=== PATIENT | male | born 1960 | race Caucasian/White ===

== ENCOUNTER → 2018-12-11 | Outpatient (CLI) | payer OTHER ==
[~2018-12-11] MED LIST: ASPIR-TRIN325 MG PO; FLEXERIL10 MG PO; GLUCOPHAGE500 M1 PO; IBUPROFEN600 MG PO; LIPITOR40 MG PO; LISINOPRIL5 MG PO; MOTRIN800 MG PO; NORFLEX100 MG PO; PROTONIX40 MG PO
[2018-12-11 09:26] LABS: BUN 14 mg/dl (7-24); CHLORIDE 105 mmol/L (98-107); CREATININE 0.89 mg/dL (0.70-1.30); POTASSIUM 4.1 mmol/L (3.5-5.1); SODIUM 139 mmol/L (136-145)
== END | disposition home or self-care (01) ==
LOC: LAB 08:30
PROVIDERS: Internal Medicine
DX: I10 Essential (primary) hypertension (principal)

== ENCOUNTER → 2018-12-16 | Day surgery (SDC) | payer OTHER ==
[~2018-12-16] VITALS: Ht 170.1 cm; Wt 72.6 kg
--- NOTE | ~2018-12-16 | O ---
[place], [place] OPERATIVE NOTE NAME: ANDREANASTASIA NAM UNIT #: [id number] ROOM: DOCTOR: BERKLEY DONALD MD BIRTHDATE: [birth year] DOS: 12/16/2018 GASTROENDOSCOPIC REPORT INDICATIONS: The patient has presented for colon screening, rectal pain, and rectal fissure. ALLERGIES: LATEX. FAMILY HISTORY: Remarkable. PAST SURGICAL HISTORY: None. PAST MEDICAL HISTORY: Diabetes, hypertension, hyperlipidemia, rectal fissure. PROCEDURE: Today's procedure part of investigation is colonoscopy plus piecemeal polypectomy. PREMEDICATION: Propofol. SCOPE: Olympus forward-viewing colonoscope 10L video. REPORT: After putting the patient in left lateral position and application of lubricant to the scope, the scope was introduced. Thereafter, under direct visualization, advanced through the length of colon without difficulty. Base of the cecum explored. Upon orifice identified, ileocecal valve was defined. Diverticulosis was noticed. A sessile polypoid lesion in sigmoid colon with piecemeal polypectomy removed. GI reflexion of the scope reveals no hemorrhoids, no rectal fissure. Air was suctioned out. The patient was extubated, tolerated the procedure well. IMPRESSION: Diverticulosis, sessile colonic polyp, sigmoid colon, status post piecemeal polypectomy. No fissure. No hemorrhoids. PLAN AND DISCUSSION: High fiber diet. ACTIVITY: Ad tu. FOLLOWUP: Routinely with you in office, p.r.n. visit with us in [facility]. Thank you very much indeed. [place], [place] OPERATIVE NOTE NAME: ANASTASIA ANDRE UNIT #: [id number] ROOM: DOCTOR: BERKLEY DONALD MD BIRTHDATE: [birth year] BERKLEY DONALD MD CM:OPRECORD:OPERATIVE NOTE [id number] BERKLEY DONALD MD 12/16/18 1325 interface
[2018-12-16 09:40] VITALS: BP 140/87
[2018-12-16 11:00] VITALS: BP 93/61
[2018-12-16 11:14] VITALS: BP 99/66
[2018-12-16 11:28] VITALS: BP 103/69
== END | disposition home or self-care (01) ==
LOC: SDC 12-11 11:00
DX: Z12.11 Encounter for screening for malignant neoplasm of colon (principal); K63.5 Polyp of colon; K62.89 Other specified diseases of anus and rectum; K57.30 Diverticulosis of large intestine without perforation or abscess without bleeding; I10 Essential (primary) hypertension; E11.9 Type 2 diabetes mellitus without complications; E78.5 Hyperlipidemia, unspecified; K21.9 Gastro-esophageal reflux disease without esophagitis; Z98.890 Other specified postprocedural states; Z79.899 Other long term (current) drug therapy

== ENCOUNTER → 2019-12-03 | Outpatient (CLI) | payer OTHER ==
[2019-12-03 16:27] LABS: FREE T4 0.84 ng/dl (0.76-1.46)
[2019-12-03 16:32] LABS: THYROID STIM HORMONE (HS) 1.84 uIU/ml (0.358-4.75)
== END | disposition home or self-care (01) ==
LOC: LAB 15:20
PROVIDERS: ATTEND Internal Medicine
DX: I10 Essential (primary) hypertension (principal); E78.00 Pure hypercholesterolemia, unspecified; E11.9 Type 2 diabetes mellitus without complications

== ENCOUNTER → 2021-02-22 | Outpatient (CLI) | payer OTHER | END | disposition home or self-care (01) | LOC: COVID19 15:00 | PROVIDERS: ATTEND Podiatrist Foot & Ankle Surgery | DX: U07.1 COVID-19 (principal) ==

== ENCOUNTER → 2021-03-01 | Outpatient (CLI) | payer OTHER | END | disposition home or self-care (01) | LOC: COVID19 15:52 | PROVIDERS: ATTEND Internal Medicine | DX: U07.1 COVID-19 (principal) ==

== ENCOUNTER → 2022-02-11 | Outpatient (CLI) | payer OTHER ==
[2022-02-11 10:57] LABS: ALKALINE PHOSPHATASE 77 U/L (46-116); BUN 10 mg/dl (9-23); CHLORIDE 100 mmol/L (98-107); CHOLESTEROL 288 mg/dL (<200); CREATININE 0.87 mg/dL (0.70-1.30); LDL CHOLESTEROL 211 mg/dL (9-159); SGPT/ALT 21 U/L (10-49); SODIUM 135 mmol/L (136-145); TOTAL PROTEIN 7.6 gm/dL (6.0-8.0); TRIGLYCERIDES 235 mg/dl (<150)
== END | disposition home or self-care (01) ==
LOC: LAB 09:55
PROVIDERS: ATTEND Internal Medicine
DX: E11.9 Type 2 diabetes mellitus without complications (principal); E78.00 Pure hypercholesterolemia, unspecified